=== PATIENT | male | born 1995 | race Caucasian/White ===

== ENCOUNTER → 2019-01-05 | Outpatient (CLI) | payer OTHER ==
--- NOTE | 2019-01-05 12:10 | PCVCIMAG ---
APPROVED REPORT Study performed: 01/05/2019 11:14:57 EXAM: Comprehensive 2D, Doppler, and color-flow Echocardiogram Patient Location: Echo lab Status: routine BSA: 1.90 HR: 75 bpmBP: 114/80 mmHg Rhythm: NSR Other Information Study Quality: Good Risk Factors: Cardiac Risk Factors: Thryroid Disease Indications Palpitations Chest Pain 2D Dimensions IVSd: 11.10 (7-11mm)LVOT Diam: 22.13 (18-24mm) LVDd: 47.92 mm PWd: 7.49 (7-11mm)Ascending Ao: 24.90 (22-36mm) LVDs: 34.66 (25-40mm) Left Atrium: 33.70 (27-40mm) Aortic Root: 24.96 mm LV Single Plane 4CH: 52.89 % LV Single Plane 2CH: 57.34 % Biplane EF: 55.0 % Volumes Left Atrial Volume (Systole) Single Plane 4CH: 19.56 mLSingle Plane 2CH: 24.91 mL LA ESV Index: 12.00 mL/m2 Aortic Valve AoV Peak Levy.: 1.19 m/s AO Peak Gr.: 5.62 mmHgLVOT Max P.59 mmHg LVOT Max V: 1.07 m/s BIANCA Vmax: 3.47 cm2 Mitral Valve E/A Ratio: 1.6 MV Decel. Time: 174.90 ms MV E Max Levy.: 0.76 m/s MV A Levy.: 0.49 m/s TDI E/Lateral E': 4.22E/Medial E': 5.85 Medial E' Levy.: 0.13 m/s Lateral E' Levy.: 0.18 m/s Pulmonary Valve PV Peak Gr.: 3.14 mmHg Pulmonary Vein P Vein S: 0.45 m/sP Vein A: 0.33 m/s P Vein D: 0.54 m/sP Vein A Dur.: 79.6 msec P Vein S/D Ratio: 0.83 Tricuspid Valve TR Peak Levy.: 2.19 m/s TR Peak Gr.: 19.21 mmHg Left Ventricle The left ventricle is normal size. There is normal LV segmental wall motion. There is normal left ventricular wall thickness. Left ventricular systolic function is normal. The left ventricular ejection fraction is within the normal range. LVEF is 55-60%. The left ventricular diastolic function is normal. Right Ventricle The right ventricle is normal size. The right ventricular systolic function is normal. Atria The left atrium size is normal. The right atrium size is normal. Aortic Valve The aortic valve is normal in structure. No aortic regurgitation is present. There is no aortic valvular stenosis. Mitral Valve The mitral valve is normal in structure. There is no mitral valve regurgitation noted. No evidence of mitral valve stenosis. Tricuspid Valve The tricuspid valve is normal in structure. Trace tricuspid regurgitation. Pulmonic Valve The pulmonary valve is normal in structure. There is no pulmonic valvular regurgitation. Great Vessels The aortic root is normal in size. IVC is normal in size and collapses >50% with inspiration. Pericardium There is no pericardial effusion. <Conclusion> The left ventricle is normal size. There is normal left ventricular wall thickness. Left ventricular systolic function is normal. The left ventricular diastolic function is normal. The right ventricle is normal size. The left atrium size is normal. The aortic valve is normal in structure. The mitral valve is normal in structure. Trace tricuspid regurgitation.
--- NOTE | 2019-01-05 13:05 | PCVCIMAG ---
APPROVED REPORT Patient Location: Echo lab Room #: Stress Nurse: Khadra Cortes RN Indications: Chest pain, Palpitations, Thyroid Disease The patient exercised according to the TIARRA protocol for12:00 mins; achieving a work level of METS. 13.40. The resting heart rate of 75 bpm bro to a maximum heart rate of190 bpm. This value represent 96% % of the maximal, age-predicted heart rate. The resting blood pressure of 114/80 mmHg, bro to a maximum blood pressure of 150/76 mmHg. The exercise test was stopped due to fatigue. Conclusion 1. Clinical response, nonischemic. 2. Stress ECG response, nonischemic. 3. Exercise capacity, above average.
== END ==
LOC: PCVCIMAG 11:21
PROVIDERS: ATTEND Internal Medicine Cardiovascular Disease
DX: I51.7 Cardiomegaly (principal); R00.2 Palpitations; E05.00 Thyrotoxicosis with diffuse goiter without thyrotoxic crisis or storm; E03.9 Hypothyroidism, unspecified; R53.83 Other fatigue; Z82.49 Family history of ischemic heart disease and other diseases of the circulatory system; Z82.3 Family history of stroke; Z72.89 Other problems related to lifestyle
CPT/HCPCS: 93017; 93306